=== PATIENT | female | born 1965 | race African-American/Black ===

== ENCOUNTER 2020-06-04 04:03 | Day surgery (SDC) | payer OTHER ==
[2020-05-29 16:00] VITALS: BMI 34.3
[2020-06-04 08:37] LABS: BASO % 1.1 % (0-2.0); EOS % 1.4 % (0-4.5); HEMATOCRIT 33.3 % (32.4-45.2); HEMOGLOBIN 11.3 GM/dL (10.7-15.3); LYMPH % 37.5 % (8-40); MCH 31.8 pg (25.7-33.7); MCHC 33.9 g/dl (32.0-36.0); MEAN CELL VOLUME 93.8 fl (80-96); MEAN PLT VOLUME 10.2 fl (7.5-11.1); MONO % 9.7 % (3.8-10.2); NEUT % 50.3 % (42.8-82.8); PLATELET COUNT 182 K/MM3 (134-434); RBC 3.55 M/mm3 (3.60-5.2); RDW 14.4 % (11.6-15.6); WHITE BLOOD COUNT 4.3 K/mm3 (4.0-10.0)
[2020-06-04 08:46] LABS: INR 0.92 (0.83-1.09); PROTHROMBIN TIME (PATIENT) 11.3 SEC (9.7-13.0)
[2020-06-04 09:13] LABS: POTASSIUM 3.7 mmol/L (3.5-5.1)
[2020-06-04 09:15] LABS: ALBUMIN 3.5 g/dl (3.4-5.0); BLOOD UREA NITROGEN 19.3 mg/dL (7-18)
[2020-06-04 09:19] LABS: CREATININE 1.2 mg/dL (0.55-1.3)
[2020-06-04 09:20] LABS: BILIRUBIN,TOTAL 0.3 mg/dL (0.2-1); TOT PROT 7.4 g/dl (6.4-8.2)
[2020-06-04] MEDS ORDERED: MIDAZOLAM HCL 2 MG/2 ML SINGLE DOSE VIAL IVPUSH SCH (12:50)
[2020-06-04] MEDS ORDERED: MIDAZOLAM HCL 2 MG/2 ML SINGLE DOSE VIAL IVPUSH ONE (12:50)
[2020-06-04] MEDS ORDERED: KETOROLAC TROMETHAMINE 15 MG/ML VIAL IVPUSH ONE ×2 (13:03→13:18)
[2020-06-04] MEDS ORDERED: HYDROmorphone HCl 2 MG/ML VIAL IVPUSH ONE ×2 (13:35→13:43)
[2020-06-04] MEDS ORDERED: HYDROmorphone *PCA* 10MG/50ML DISP.SYRIN ONE (14:14)
[2020-06-04] MEDS: SODIUM CHLORIDE 1,000 ML IV SCH (14:25)
[2020-06-04] MEDS ORDERED: HYDROmorphone *PCA* 10MG/50ML DISP.SYRIN PCA SCH (14:45)
[2020-06-04] MEDS ORDERED: ONDANSETRON 4 MG/2 ML VIAL IVPUSH PRN (14:53)
[2020-06-04] MEDS ORDERED: SODIUM CHLORIDE 500 ML IV SCH (15:00)
[2020-06-04] MEDS ORDERED: ONDANSETRON 4 MG/2 ML VIAL ONE (15:40)
[2020-06-04] MEDS: FERROUS SO4 325 MG TABLET (FP) PO SCH (21:25)
[2020-06-04] MEDS: INSULIN SLIDING SCALE (NOVOLOG) 1 VIAL SQ SCH (21:25)
[2020-06-04] MEDS ORDERED: ACETAMINOPHEN 1000 MG/100 ML VIAL (NON FORMULARY) IVPB ONE (23:45)
[2020-06-05] MEDS: SODIUM CHLORIDE 1,000 ML IV SCH (04:01)
[2020-06-05] MEDS: INSULIN SLIDING SCALE (NOVOLOG) 1 VIAL SQ SCH ×3 (06:47→17:36)
[2020-06-05] MEDS ORDERED: ACETAMINOPHEN 1000 MG/100 ML VIAL (NON FORMULARY) IVPB ONE (06:59)
[2020-06-05 08:22] LABS: BASO % 0.4 % (0-2.0); EOS % 0.8 % (0-4.5); HEMATOCRIT 33.9 % (32.4-45.2); HEMOGLOBIN 11.3 GM/dL (10.7-15.3); MCH 31.5 pg (25.7-33.7); MCHC 33.5 g/dl (32.0-36.0); MEAN PLT VOLUME 10.4 fl (7.5-11.1); MONO % 9.3 % (3.8-10.2); NEUT % 70.5 % (42.8-82.8); PLATELET COUNT 169 K/MM3 (134-434); RDW 14.3 % (11.6-15.6); WHITE BLOOD COUNT 6.6 K/mm3 (4.0-10.0)
[2020-06-05 08:30] LABS: POTASSIUM 3.7 mmol/L (3.5-5.1)
[2020-06-05 08:33] LABS: CALCIUM 8.8 mg/dL (8.5-10.1)
[2020-06-05 08:34] LABS: ALBUMIN 3.4 g/dl (3.4-5.0); BLOOD UREA NITROGEN 13.3 mg/dL (7-18); MAGNESIUM 1.8 mg/dL (1.8-2.4)
[2020-06-05 08:37] LABS: PHOSPHOROUS 3.6 mg/dL (2.5-4.9)
[2020-06-05 08:38] LABS: BILIRUBIN,TOTAL 0.5 mg/dL (0.2-1); TOT PROT 7.2 g/dl (6.4-8.2)
[2020-06-05] MEDS: FERROUS SO4 325 MG TABLET (FP) PO SCH (09:18)
[2020-06-05] MEDS ORDERED: amLODIPine BESYLATE 5 MG TABLET (FP) PO SCH (10:00)
[2020-06-05] MEDS ORDERED: FOLIC ACID 1 MG TABLET (FP) PO SCH (10:00)
[2020-06-05] MEDS ORDERED: HYDROCHLOROTHIAZIDE 25 MG TABLET (FP) PO SCH (10:00)
[2020-06-05] MEDS ORDERED: METHOCARBAMOL 500 MG TABLET PO ONE (10:40)
[2020-06-05] MEDS ORDERED: DOCUSATE SODIUM 100 MG CAPSULE (FP) PO SCH (10:45)
[2020-06-05] MEDS ORDERED: LOSARTAN POTASSIUM 50 MG TABLET PO SCH (10:45)
[2020-06-05] MEDS ORDERED: PCA PUMP NR ONE (12:55)
[2020-06-05] MEDS ORDERED: INSULIN (LEVEMIR) 100 UNITS/ML UNITS SQ SCH (13:00)
[2020-06-05] MEDS ORDERED: oxyCODONE HCL 5 MG TABLET PO ONE ×2 (13:15)
[2020-06-05] MEDS ORDERED: ACETAMINOPHEN 325 MG TABLET (FP) PO ONE ×2 (13:15)
[2020-06-05 14:41] VITALS: BP 128/65; PULSE 78; TEMP 98.5
[2020-06-05] MEDS ORDERED: ESCITALOPRAM OXALATE 20 MG TABLET PO SCH (22:00)
[2020-06-05] MEDS ORDERED: ATORVASTATIN CA 10 MG TABLET (FP) PO SCH (22:00)
== END 2020-06-05 19:24 | disposition home or self-care (01) ==
LOC: SUATTDRO 04:03 → JASUSAT 04:03 → J7W 17:38 → JASUSAT 06-05 19:24
PROVIDERS: ATTEND Internal Medicine
PROC: 04LE3DT Occlusion of Right Uterine Artery with Intraluminal Device, Percutaneous Approach (ICD-10-PCS; 2020-06-04)
PROC: 04LF3DU Occlusion of Left Uterine Artery with Intraluminal Device, Percutaneous Approach (ICD-10-PCS; principal; 2020-06-04 10:00)
DX: D25.9 Leiomyoma of uterus, unspecified (principal); N94.6 Dysmenorrhea, unspecified
CPT/HCPCS: 36415; 37243; 76942-TC; 80053; 82962; 83735; 84100; 84703; 85025; 85610; 94760; C1760; C1769; C1887; C1894; J0131